=== PATIENT | male | born 1955 | race Caucasian/White ===

== ENCOUNTER → 2021-08-31 15:08 | Outpatient (BNVA) | payer MEDICARE, SELFPAY | PROVIDERS: PCP Nurse Practitioner Family; Visit Provider Nurse Practitioner Family | DX: Z20.822 Contact with and (suspected) exposure to COVID-19 (principal); I10 Essential (primary) hypertension; J44.9 Chronic obstructive pulmonary disease, unspecified | CPT/HCPCS: 87635 ==

== ENCOUNTER → 2021-09-13 10:40 | Outpatient (BNVA) | payer MEDICARE, SELFPAY | PROVIDERS: PCP Family Medicine Adult Medicine; Visit Provider Family Medicine Adult Medicine | DX: I10 Essential (primary) hypertension (principal); H53.129 Transient visual loss, unspecified eye; H53.9 Unspecified visual disturbance; E11.9 Type 2 diabetes mellitus without complications | CPT/HCPCS: 80053; 80061; 83036; 84443; 85025 ==

== ENCOUNTER → 2021-12-27 08:51 | Outpatient (BNVA) | payer MEDICARE, SELFPAY | PROVIDERS: PCP Family Medicine Adult Medicine; Referring Provider Family Medicine Adult Medicine; Visit Provider Urology | DX: R36.1 Hematospermia (principal); Z12.5 Encounter for screening for malignant neoplasm of prostate | CPT/HCPCS: 81003; G0103 ==

== ENCOUNTER → 2022-02-14 10:03 | Outpatient (BNVA) | payer MEDICARE, SELFPAY | PROVIDERS: PCP Family Medicine Adult Medicine; Visit Provider Family Medicine Adult Medicine | DX: E11.9 Type 2 diabetes mellitus without complications (principal); I10 Essential (primary) hypertension; E78.5 Hyperlipidemia, unspecified; M15.9 Polyosteoarthritis, unspecified; J44.9 Chronic obstructive pulmonary disease, unspecified | CPT/HCPCS: 80053; 80061; 83036 ==

== ENCOUNTER → 2022-03-03 08:53 | Outpatient (BNVA) | payer MEDICARE, SELFPAY | PROVIDERS: PCP Family Medicine Adult Medicine; Visit Provider Urology | DX: R39.89 Other symptoms and signs involving the genitourinary system (principal); R36.1 Hematospermia; N48.6 Induration penis plastica; N53.9 Unspecified male sexual dysfunction | CPT/HCPCS: 81003; 99214 ==

== ENCOUNTER → 2022-05-16 11:45 | Outpatient (BNVA) | payer MEDICARE, SELFPAY | PROVIDERS: PCP Family Medicine Adult Medicine; Visit Provider Family Medicine Adult Medicine | DX: I10 Essential (primary) hypertension (principal); E11.9 Type 2 diabetes mellitus without complications | CPT/HCPCS: 80053; 83036; 85025 ==

== ENCOUNTER → 2022-07-27 08:59 | Outpatient (BNVA) | payer MEDICARE, SELFPAY | PROVIDERS: PCP Family Medicine Adult Medicine; Visit Provider Podiatrist Foot & Ankle Surgery | DX: E11.8 Type 2 diabetes mellitus with unspecified complications (principal); I73.9 Peripheral vascular disease, unspecified; L60.3 Nail dystrophy; M21.6X1 Other acquired deformities of right foot; M21.6X2 Other acquired deformities of left foot; Z79.84 Long term (current) use of oral hypoglycemic drugs | CPT/HCPCS: 11721 ==

== ENCOUNTER → 2022-09-11 14:07 | Outpatient (BNVA) | payer MEDICARE, SELFPAY | PROVIDERS: PCP Family Medicine Adult Medicine; Visit Provider Urology | DX: Z12.5 Encounter for screening for malignant neoplasm of prostate (principal); N53.9 Unspecified male sexual dysfunction; N48.6 Induration penis plastica; R36.1 Hematospermia | CPT/HCPCS: 81003; 99213 ==

== ENCOUNTER → 2022-09-28 08:55 | Outpatient (BNVA) | payer MEDICARE, SELFPAY | PROVIDERS: PCP Family Medicine Adult Medicine; Visit Provider Podiatrist Foot & Ankle Surgery | DX: E11.8 Type 2 diabetes mellitus with unspecified complications (principal); I73.9 Peripheral vascular disease, unspecified; L60.3 Nail dystrophy; M21.6X9 Other acquired deformities of unspecified foot; Z79.84 Long term (current) use of oral hypoglycemic drugs | CPT/HCPCS: 11721 ==

== ENCOUNTER → 2022-11-03 13:52 | Outpatient (BNVA) | payer MEDICARE, SELFPAY | PROVIDERS: PCP Family Medicine Adult Medicine; Visit Provider Family Medicine Adult Medicine | DX: E11.9 Type 2 diabetes mellitus without complications (principal); E78.5 Hyperlipidemia, unspecified; I10 Essential (primary) hypertension; R60.0 Localized edema; J44.9 Chronic obstructive pulmonary disease, unspecified; R05.9 Cough, unspecified | CPT/HCPCS: 80053 ==

== ENCOUNTER → 2022-12-14 10:33 | Outpatient (BNVA) | payer MEDICARE, SELFPAY | PROVIDERS: PCP Family Medicine Adult Medicine; Visit Provider Podiatrist Foot & Ankle Surgery | DX: I73.9 Peripheral vascular disease, unspecified (principal); E11.8 Type 2 diabetes mellitus with unspecified complications; L60.3 Nail dystrophy; M21.6X2 Other acquired deformities of left foot; M21.6X1 Other acquired deformities of right foot; Z79.84 Long term (current) use of oral hypoglycemic drugs | CPT/HCPCS: 11721 ==

== ENCOUNTER 2023-01-05 15:11 | Outpatient (CLI) | payer MEDICARE, SELFPAY ==
--- NOTE | 2023-01-05 15:42 | XRR_ITS ---
PROCEDURE INFORMATION: Exam: XR Chest Exam date and time: 01/05/2023 3:44 PM Age: 67 years old Clinical indication: Cough; Additional info: Chronic cough/congestion, chronic congestion since May 2022 and antibiotics and copd medicines TECHNIQUE: Imaging protocol: Radiologic exam of the chest. Views: 2 views. COMPARISON: No relevant prior studies available. FINDINGS: Lungs: Hyperinflated lungs. No consolidation. Pleural spaces: No pleural effusion. No pneumothorax. Heart/Mediastinum: No cardiomegaly. Bones/joints: Visualized osseous structures are intact. XR/XR chest 2V* [id number] IMPRESSION: No acute findings.
== END 2023-01-05 15:12 | disposition home or self-care (01) ==
PROVIDERS: PCP Family Medicine; Visit Provider Family Medicine Adult Medicine
DX: J44.9 Chronic obstructive pulmonary disease, unspecified (principal); R05.9 Cough, unspecified; R60.0 Localized edema
CPT/HCPCS: 71046

== ENCOUNTER → 2023-03-13 14:52 | Outpatient (BNVA) | payer MEDICARE, SELFPAY | PROVIDERS: PCP Family Medicine Adult Medicine; Visit Provider Podiatrist Foot & Ankle Surgery | DX: E11.8 Type 2 diabetes mellitus with unspecified complications (principal); I73.9 Peripheral vascular disease, unspecified; L60.3 Nail dystrophy; M21.6X2 Other acquired deformities of left foot; M21.6X1 Other acquired deformities of right foot; Z79.84 Long term (current) use of oral hypoglycemic drugs | CPT/HCPCS: 99214 ==

== ENCOUNTER → 2023-04-13 09:56 | Outpatient (BNVA) | payer MEDICARE, SELFPAY | PROVIDERS: PCP Family Medicine Adult Medicine; Visit Provider Family Medicine Adult Medicine | DX: I10 Essential (primary) hypertension (principal); E11.9 Type 2 diabetes mellitus without complications; E78.5 Hyperlipidemia, unspecified; I73.9 Peripheral vascular disease, unspecified; R05.9 Cough, unspecified; M15.9 Polyosteoarthritis, unspecified; J44.9 Chronic obstructive pulmonary disease, unspecified; N53.9 Unspecified male sexual dysfunction | CPT/HCPCS: 80053; 80061; 83036; 84443; 85025 ==

== ENCOUNTER → 2023-06-04 14:50 | Outpatient (BNVA) | payer MEDICARE, SELFPAY | PROVIDERS: PCP Family Medicine Adult Medicine; Visit Provider Podiatrist Foot & Ankle Surgery | DX: E11.9 Type 2 diabetes mellitus without complications (principal); I73.9 Peripheral vascular disease, unspecified; L60.3 Nail dystrophy; M21.6X2 Other acquired deformities of left foot; M21.6X1 Other acquired deformities of right foot; Z79.84 Long term (current) use of oral hypoglycemic drugs | CPT/HCPCS: 11721 ==

== ENCOUNTER → 2023-08-29 10:50 | Outpatient (BNVA) | payer MEDICARE, MEDICAID, SELFPAY | PROVIDERS: PCP Family Medicine Adult Medicine; Visit Provider Podiatrist Foot & Ankle Surgery | DX: E11.8 Type 2 diabetes mellitus with unspecified complications (principal); I73.9 Peripheral vascular disease, unspecified; L60.3 Nail dystrophy; M21.6X2 Other acquired deformities of left foot; M21.6X1 Other acquired deformities of right foot; Z79.84 Long term (current) use of oral hypoglycemic drugs | CPT/HCPCS: 11721 ==

== ENCOUNTER → 2023-10-31 12:46 | Outpatient (BNVA) | payer MEDICARE, MEDICAID, SELFPAY | PROVIDERS: PCP Family Medicine Adult Medicine; Visit Provider Nurse Practitioner Family | DX: M25.422 Effusion, left elbow (principal) | CPT/HCPCS: 73080 ==

== ENCOUNTER → 2023-12-05 12:42 | Outpatient (BNVA) | payer MEDICARE, SELFPAY | PROVIDERS: PCP Family Medicine Adult Medicine; Visit Provider Podiatrist Foot & Ankle Surgery | DX: E11.9 Type 2 diabetes mellitus without complications (principal); I73.9 Peripheral vascular disease, unspecified; L60.3 Nail dystrophy; M21.6X9 Other acquired deformities of unspecified foot; M21.6X2 Other acquired deformities of left foot; M21.6X1 Other acquired deformities of right foot; Z79.84 Long term (current) use of oral hypoglycemic drugs | CPT/HCPCS: 11721 ==

== ENCOUNTER → 2024-01-15 13:47 | Outpatient (BNVA) | payer MEDICARE, SELFPAY | PROVIDERS: PCP Family Medicine Adult Medicine; Visit Provider Family Medicine Adult Medicine | DX: E11.9 Type 2 diabetes mellitus without complications (principal); I10 Essential (primary) hypertension; E78.2 Mixed hyperlipidemia; N53.9 Unspecified male sexual dysfunction; J43.1 Panlobular emphysema | CPT/HCPCS: 80053; 83036; 85025 ==

== ENCOUNTER → 2024-03-05 14:29 | Outpatient (BNVA) | payer MEDICARE, SELFPAY | PROVIDERS: PCP Family Medicine Adult Medicine; Visit Provider Podiatrist Foot & Ankle Surgery | DX: E11.9 Type 2 diabetes mellitus without complications (principal); I73.9 Peripheral vascular disease, unspecified; L60.3 Nail dystrophy; Z79.84 Long term (current) use of oral hypoglycemic drugs | CPT/HCPCS: 11721 ==

== ENCOUNTER → 2024-05-14 15:20 | Outpatient (BNVA) | payer MEDICARE, SELFPAY | PROVIDERS: PCP Family Medicine Adult Medicine; Visit Provider Podiatrist Foot & Ankle Surgery | DX: I73.9 Peripheral vascular disease, unspecified; L60.3 Nail dystrophy; E11.69 Type 2 diabetes mellitus with other specified complication; Z79.84 Long term (current) use of oral hypoglycemic drugs | CPT/HCPCS: 11721 ==

== ENCOUNTER → 2024-07-23 10:29 | Outpatient (BNVA) | payer MEDICARE, SELFPAY | PROVIDERS: PCP Family Medicine Adult Medicine; Visit Provider Podiatrist Foot & Ankle Surgery | DX: E11.8 Type 2 diabetes mellitus with unspecified complications (principal); I73.9 Peripheral vascular disease, unspecified; L60.3 Nail dystrophy; Z79.84 Long term (current) use of oral hypoglycemic drugs | CPT/HCPCS: 11721 ==

== ENCOUNTER → 2024-07-24 15:33 | Outpatient (BNVA) | payer MEDICARE, SELFPAY | PROVIDERS: PCP Family Medicine Adult Medicine | DX: I10 Essential (primary) hypertension (principal); E11.9 Type 2 diabetes mellitus without complications | CPT/HCPCS: 80053; 83036; 85025 ==

== ENCOUNTER → 2024-10-06 08:54 | Outpatient (BNVA) | payer MEDICARE, MEDICAID, SELFPAY | PROVIDERS: PCP Family Medicine Adult Medicine; Visit Provider Podiatrist Foot & Ankle Surgery | DX: E11.8 Type 2 diabetes mellitus with unspecified complications (principal); I73.9 Peripheral vascular disease, unspecified; L60.3 Nail dystrophy; Z79.84 Long term (current) use of oral hypoglycemic drugs | CPT/HCPCS: 11721 ==

== ENCOUNTER 2024-10-14 09:00 | Outpatient (CLI) | payer MEDICARE, MEDICAID, SELFPAY ==
--- NOTE | 2024-10-14 09:00 | CT_ITS ---
WS: [id number] LDCT LUNG CANCER SCREENING HISTORY: smoker; 53pk yr; screening lung ca TECHNIQUE: Axial imaging performed from the apices to 1 cm below the costophrenic angles. Coronal and sagittal reformats are submitted with axial MIP series. All CT scans at [facility] use at least one of these dose optimization techniques: automated exposure control; mA and/or kV adjustment per patient size (includes targeted exams where dose is matched to clinical indication); or iterativ e reconstruction. DLP: 65.49 mGy.cm DIvol: Mean CTDIvol: 1.10 (mGy) COMPARISON: None available. Diagnostic quality: Satisfactory Lungs: Moderate centrilobular emphysema. There are a few micronodules scattered throughout the periph chris of both lungs. Focal scar in the lingula. No endobronchial lesions. Heart: Normal size heart with no pericardial effusion.. Other findings: Calcified hilar lymph nodes. Mild atherosclerosis aorta. Normal size aorta and pulmon malcolm artery. Small hiatal hernia. No adrenal mass. Splenic granulomata. CT/CT lung screening [id number] IMPRESSION: LUNG-RADS: 2-Benign Appearance or Behavior FOLLOW UP: 12 Month: Continue annual screening with LDCT OTHER FINDINGS (S MODIFIER): None.
== END 2024-10-14 09:01 | disposition home or self-care (01) ==
PROVIDERS: PCP Family Medicine; Visit Provider Family Medicine
DX: Z12.2 Encounter for screening for malignant neoplasm of respiratory organs (principal); F17.210 Nicotine dependence, cigarettes, uncomplicated; J43.2 Centrilobular emphysema; R91.8 Other nonspecific abnormal finding of lung field; I89.8 Other specified noninfective disorders of lymphatic vessels and lymph nodes; I70.0 Atherosclerosis of aorta; K44.9 Diaphragmatic hernia without obstruction or gangrene; D73.89 Other diseases of spleen
CPT/HCPCS: 71271

== ENCOUNTER → 2025-01-12 10:15 | Outpatient (BNVA) | payer MEDICARE, MEDICAID, SELFPAY | PROVIDERS: PCP Family Medicine; Visit Provider Podiatrist Foot & Ankle Surgery | DX: E11.69 Type 2 diabetes mellitus with other specified complication (principal); L60.3 Nail dystrophy; I73.9 Peripheral vascular disease, unspecified; M21.6X9 Other acquired deformities of unspecified foot; M20.41 Other hammer toe(s) (acquired), right foot; M20.42 Other hammer toe(s) (acquired), left foot; M21.6X1 Other acquired deformities of right foot; M21.6X2 Other acquired deformities of left foot; Z79.84 Long term (current) use of oral hypoglycemic drugs | CPT/HCPCS: 11721; 99213 ==

== ENCOUNTER → 2025-02-23 08:26 | Outpatient (BNVA) | payer MEDICARE, MEDICAID, SELFPAY | PROVIDERS: PCP Family Medicine; Visit Provider Family Medicine | DX: I10 Essential (primary) hypertension (principal); E78.2 Mixed hyperlipidemia; R73.03 Prediabetes; Z12.5 Encounter for screening for malignant neoplasm of prostate | CPT/HCPCS: 80053; 80061; 83036; 84443; 85025; G0103 ==

== ENCOUNTER 2025-03-09 11:22 | Emergency (ER) | payer MEDICARE, MEDICAID, SELFPAY ==
[2025-03-09 11:27] VITALS: BP 114/68; PULSE 74; RESP 16; TEMP 36.9; O2SAT 96
--- NOTE | 2025-03-09 11:34 | ECG_ITS ---
[facility] Test Date: 2025-03-09 Pat Name: Charlie Marcus Department: Room: Gender: Male [employer] Operator: : 1955 Requested By: Keshav Keller Order Number: [id number] Magdaleno MD: Samantha Swanson M.D. Measurements Intervals [place] Rate: 71 P: 91 NH: 147 QRS: 89 QRSD: 116 T: 85 QT: 393 QTc: 429 Interpretive Statements SINUS RHYTHM POSSIBLE RIGHT VENTRICULAR CONDUCTION DELAY [RSR (QR) IN V1/V2] No previous ECG available for comparison Electronically Signed On 03-09-2025 21:56:33 CDT by Samantha Swanson M.D. [email or web address] [id number]
--- NOTE | 2025-03-09 11:50 | XRR_ITS ---
PROCEDURE INFORMATION: Exam: XR Chest Exam date and time: 03/09/2025 11:56 AM Age: 69 years old Clinical indication: Other: Weakness TECHNIQUE: Imaging protocol: Radiologic exam of the chest. Views: 1 view. COMPARISON: CT lung screening [id number] 10/14/2024 9:01 AM FINDINGS: Lungs: Unremarkable. No consolidation. Pleural spaces: Unremarkable. No pleural effusion. No pneumothorax. Heart/Mediastinum: Unremarkable. No cardiomegaly. Bones/joints: Unremarkable. XR/XR chest 1V portable [id number] IMPRESSION: No acute findings.
[2025-03-09 12:36] LABS: Basophils # 0.1 10^3/uL (0.0-0.1); Basophils % 0.4 %; Eosinophils # 0.2 10^3/uL (0.0-0.8); Eosinophils % 1.9 %; Hematocrit 39.9 % (37-53); Lymphocytes % 9.1 %; Mean Corpuscular HGB Conc 33.1 g/dL (30-55); Mean Corpuscular Hemoglobin 29.9 pg (27-33); Mean Corpuscular Volume 90.3 fl (82-101); Monocytes # 0.9 10^3/uL (0.2-0.9); Neutrophils # 9.19 10^3/uL (1.8-7.7); Neutrophils % 80.3 %; Nucleated Red Blood Cells % 0 %; Platelet Count 307 10^3/cmm (157-399); Red Blood Count 4.42 10^6/uL (3.85-5.65); Red Cell Distribution Width 13.3 % (12.1-15.1); White Blood Count 11.44 10^3/uL (3.29-11.43)
[2025-03-09 12:53] LABS: Alanine Aminotransferase 11 U/L (0-41); Albumin Level 3.9 g/dL (3.5-5.2); Alkaline Phosphatase 95 U/L (40-130); Anion Gap 14.2 (5-19); Aspartate Amino Transferase 15 U/L (0-40); Blood Urea Nitrogen 23 mg/dL (8-23); Calcium 9.1 mg/dL (8.5-10.5); Carbon Dioxide 26 mmol/L (22-29); Chloride 101 mmol/L (98-107); Creatinine Clr Calc Pharmacy 83.7406; Glomerular Filtration Rate 74.1 mL/min (90-130); Glucose 112 mg/dL (65-115); Osmolality Calculated 288 mOsm/kg (285-295); Potassium 4.2 mmol/L (3.5-5.1); Sodium 137 mmol/L (136-145); Total Bilirubin 0.3 mg/dL (0.15-1.2); Total Protein 6.9 g/dL (6.6-8.7)
--- NOTE | 2025-03-09 15:16 | CTR_ITS ---
PROCEDURE INFORMATION: Exam: CT Head Without Contrast Exam date and time: 03/09/2025 3:53 PM Age: 69 years old Clinical indication: Pain; Headache; Migraine; Additional info: [place] TECHNIQUE: Imaging protocol: Computed tomography of the head without contrast. Radiation optimization: All CT scans at this facility use at least one of these dose optimization techniques: automated exposure control; mA and/or kV adjustment per patient size (includes targeted exams where dose is matched to clinical indication); or iterative reconstruction. COMPARISON: CT head wo con* [id number] 09/22/2019 11:47 AM RADIATION DOSE METRICS: Total DLP (mGy-cm): 1076.68 FINDINGS: Brain: Normal. No hemorrhage. Unremarkable white matter. No mass effect. Cerebral ventricles: No ventriculomegaly. Paranasal sinuses: Visualized sinuses are unremarkable. No fluid levels. Mastoid air cells: Visualized mastoid air cells are well aerated. Bones: Unremarkable. No acute fracture. Soft tissues: Unremarkable. CT/CT head wo con* [id number] IMPRESSION: No acute intracranial abnormality.
[2025-03-09 15:19] VITALS: TEMP 36.4
--- NOTE | 2025-03-09 15:19 | ED_ITS ---
HPI - General Adult 2 General: Chief complaint: General Medical Stated complaint: stroke like symptoms Time Seen by Provider: 03/09/25 15:14 Source: patient Mode of arrival: ambulatory Limitations: no limitations History of Present Illness: 69-year-old male states that over the week he has been having numbness. He states he has had numbness to both sides of his body today states he had some numbness to the right side of his arm and face states yesterday was on his left side he had no weakness no slurred speech he does have a headache. Denies any worse improving factors. Associated symptoms: Reports headache(s); Deny chest pain, dyspnea, nausea, rash or vomiting Related Data Home Medications ?Medication ?Instructions ?Recorded ?Confirmed aspirin 81 mg tablet,delayed 81 mg PO .every other day 09/13/21 02/23/25 release (Adult Low Dose Aspirin) Previous Rx's ?Medication ?Instructions ?Recorded ipratropium 20 mcg-albuterol 100 1 puff inhalation QID COPD #4 grams 08/12/22 mcg/actuation mist for inhalation (Combivent Respimat) montelukast 10 mg tablet 10 mg PO DAILY #90 tabs 09/24 01/16 diabetic shoes with 3 inserts #1 ea 01/12/25 ramipril 5 mg capsule 10 mg (2 x 5 mg) PO DAILY bl ood 01/19/25 pressure #180 caps meloxicam 15 mg tablet See Rx Instructions .Route 0 01/23/25 .COMPLEX #90 tabs atorvastatin 10 mg tablet (Lipitor) 10 mg PO DAILY #90 tabs 02/23/25 budesonide-formoterol HFA 160 2 puff inhalation BID #1 0.2 grams 02/23/25 mcg-4.5 mcg/actuation aerosol inhaler doxycycline hyclate 100 mg capsule 100 mg PO BID 10 da ys #20 caps 02/23/25 Allergies Allergy/AdvReac Type Severity Reaction Status Date / Time No Known Allergies Allergy Verified 02/23/25 07:08 Review of Systems 2 Const: Denies: fever(s), chills, body aches or change in appetite Eyes: Denies: blurry vision or eye discomfort ENMT: Denies: throat pain or dental pain Card: Denies: chest pain Resp: Denies: dyspnea GI: Denies: abdominal pain, nausea, vomiting or diarrhea Musc: Denies: neck pain or back pain Skin/Breast: Denies: rash Neuro: Reports: headache(s) and sensory changes PFSH ED 2 PFSH: Medical History Carpal tunnel syndrome of right wrist Prediabetes Enrolled in chronic care management Constipation Migraine, ophthalmoplegic Nicotine dependence, cigarettes, uncomplicated Screening for lung cancer LDCT 10.14.24, due 1 yr CKD (chronic kidney disease) stage 2, GFR 60-89 ml/min 04/11/2024 creatinine 1.2 GFR 63 Peripheral arterial disease Bilateral lower extremity edema Peyronie's disease Abnormal prostate exam Male sexual dysfunction Hyperlipidemia Chronic obstructive pulmonary disease Osteoarthritis involving multiple joints on both sides of body Hypertension Surgical History H/O hernia repair Left inguinal History of tonsillectomy Family History Father , AT 67 Heart attack Mother , AT AGE 81 Aneurysm Social History Smoking and tobacco/nicotine status: current every day tobacco/nicotine user cigarettes Packs smoked per day: 1 Years cigarettes smoked: 53 Alcohol intake: never Substance/Drug Use: never Caregiver/support person: No Lives independently: Yes Household members: spouse and other Details: son and grandson Marital status: Number of children: 2 Highest education level completed: Some College, No Degree Current occupational status: retired Previous occupational history: saw mill Do you think of yourself as: Straight/Heterosexual Current gender identity: Male Physical Exam 2 Const: COMMON NORMALS: no acute distress, patient oriented x3 and healthy appearing HENMT: COMMON NORMALS: normocephalic and atraumatic HEAD & SCALP: n ormocephalic and atraumatic Eye: COMMON NORMALS: Equal, round and reactive pupils present and EOMs intact bilaterally VISUAL ISAAC: No peripheral vision loss, No central vision loss, No left visual field cut, No right visual field cut, No bitemporal visual field cut, No binasal visual field cut and No visual field cut by quadrant PUPIL: Y es Equal, round and reactive pupils present Neck/C-Spine: COMMON NORMALS: full ROM and supple Chest: COMMONS NORMALS: normal inspection of the chest Resp: COMMON NORMALS: normal respiratory effort, No retractions, No use of accessory muscles and clear to auscultation bilaterally AUSCULTATION: clear to auscultation bilaterally Cardio: COMMON NORMALS: regular rate, regular rhythm and No murmurs present (Cardio) RATE: regular rate RHYTHM: regular rhythm Extremity: COMMON NORMALS: normal to inspection and full ROM Neuro: COMMON NORMALS: patient oriented x3, moves all extremities and no focal motor deficits CRANIAL NERVES: Yes CN normal except as noted SPEECH: s peech normal GAIT: Yes Normal gait present MOTOR EXAM: 5/5 motor strength present throughout Psych: COMMON NORMALS: mental status grossly normal, Normal thought process present and cooperative THOUGHT PROCESS: Normal thought process present Skin: COMMON NORMALS: no rashes or lesions noted and no wounds GENERAL SKIN EXAM: no rashes or lesions noted Course 2 Vital Signs: Vital signs: Vital Signs Temperature 97.5 F L 03/09/25 15:19 Pulse Rate 64 03/09/25 17:00 Respiratory Rate 16 03/09/25 17:00 Blood Pressure 172/90 03/09/25 17:00 Pulse Oximetry 98 03/09/25 17:00 Oxygen Delivery Me thod Room Air 03/09/25 17:00 MDM - General Adult Medical Decision Making Patient presents here with paresthesias-bilateral he denies here 0 is asymptomatic currently did offer admission but he states he feels improved he is on aspirin he is to take daily he has follow-up with PCP he has no signs of acute stroke here he is return if worsening. Medical Records I reviewed the patient's medical records. Lab Data I reviewed the patient's lab results. 03/09/25 12:20 03/09/25 12:09 Radiology Impressions Chest X-Ray 03/09/25 11:50 IMPRESSION: No acute findings. Head CT 03/09/25 15:16 IMPRESSION: No acute intracranial abnormality. Laboratory Results WBC 11.44 10^3/uL (3.29-11.43) H 03/09/25 12:20 RBC 4.42 10^6/uL (3.85-5.65) 03/09/25 12:20 Hgb 13.20 g/dL (11.27-16.99) 03/09/25 12:20 Hct 39.9 % (37-53) 03/09/25 12:20 MCV 90.3 fl (82-101) 03/09/25 12:20 MCH 29.9 pg (27-33) 03/09/25 12:20 MCHC 33.1 g/dL (30-55) 03/09/25 12:20 RDW 13.3 % (12.1-15.1) 03/09/25 12:20 Plt Count 307 10^3/cmm (157-399) 03/09/25 12:20 MPV 9.0 fL (7.4-10.4) 03/09/25 12:20 Neut % (Auto) 80.3 % 03/09/25 12:20 Lymph % (Auto) 9.1 % 03/09/25 12:20 [place] % (Auto) 8.0 % 03/09/25 12:20 Eos % (Auto) 1.9 % 03/09/25 12:20 Baso % (Auto) 0.4 % 03/09/25 12:20 Neut # (Auto) 9.19 10^3/uL (1.8-7.7) H 03/09/25 12:20 Lymph # (Auto) 1.0 10^3/uL (0.8-4.8) 03/09/25 12:20 [place] # (Auto) 0.9 10^3/uL (0.2-0.9) 03/09/25 12:20 Eos # (Auto) 0.2 10^3/uL (0.0-0.8) 03/09/25 12:20 Baso # (Auto) 0.1 10^3/uL (0.0-0.1) 03/09/25 12:20 Nucleated RBC % (auto) 0 % 03/09/25 12:20 Nucleated RBCs # 0.0 /100WBC 03/09/25 12:20 Sodium 137 mmol/L (136-145) 03/09/25 12:09 Potassium 4.2 mmol/L (3.5-5.1) 03/09/25 12:09 Chloride 101 mmol/L (98-107) 03/09/25 12:09 Carbon Dioxide 26 mmol/L (22-29) 03/09/25 12:09 Anion Gap 14.2 (5-19) 03/09/25 12:09 BUN 23 mg/dL (8-23) 03/09/25 12:09 Creatinine 1.0 mg/dL (0.7-1.2) 03/09/25 12:09 GFR Calculation 74.1 mL/min (90-130) L 03/09/25 12:09 Glucose 112 mg/dL (65-115) 03/09/25 12:09 Calculated Osmolality 288 mOsm/kg (285-295) 03/09/25 12:09 Calcium 9.1 mg/dL (8.5-10.5) 03/09/25 12:09 Total Bilirubin 0.3 mg/dL (0.15-1.2) 03/09/25 12:09 AST 15 U/L (0-40) 03/09/25 12:09 ALT 11 U/L (0-41) 03/09/25 12:09 Alkaline Phosphatase 95 U/L (40-130) 03/09/25 12:09 Total Protein 6.9 g/dL (6.6-8.7) 03/09/25 12:09 Albumin 3.9 g/dL (3.5-5.2) 03/09/25 12:09 Globulin 3.0 g/dL (1.3-4.6) 03/09/25 12:09 All radiology interpretation(s) finalized by discharge Discharge Plan Discharge Patient Disposition: Home Clinical Impression: Paresthesia Condition: Stable Prescriptions: No Action aspirin [Adult Low Dose Aspirin] 81 mg tablet,delayed release (DR/EC) 81 mg PO .every other day montelukast 10 mg tablet 10 mg PO DAILY Qty: 90 3RF (DME) diabetic shoes with 3 inserts See Rx Instructions .Route .MEDSUPPLY Qty: 1 0RF Rx Instructions: As directed to [employer] [facility] [facility] Combivent Respimat 20-100 mcg/actuation mist 1 puff inhalation QID Qty: 4 3RF Rx Instructions: space evenly during waking hours budesonide-formoterol 160-4.5 mcg/actuation HFA aerosol inhaler 2 puff inhalation BID Qty: 10.2 5RF doxycycline hyclate 100 mg capsule 100 mg PO BID 10 Days Qty: 20 0RF atorvastatin [Lipitor] 10 mg tablet 10 mg PO DAILY Qty: 90 3RF ramipril 5 mg capsule 10 mg PO DAILY Qty: 180 1RF meloxicam 15 mg tablet See Rx Instructions .ROUTE .COMPLEX Qty: 90 1RF Dose Instruction: TAKE 1 TABLET BY MOUTH ONCE DAILY FOR ARTHRITIS PAIN Rx Instructions: TAKE 1 TABLET BY MOUTH ONCE DAILY FOR ARTHRITIS PAIN Discharge Orders: Discharge ED (Routine); Ordered 03/09/25 Ordered By: Marylou Byrd Referrals: Kathy Sommers MD [Primary Care Provider, [facility]] - 4-7 days Discharge Diet: Advance as tolerated Discharge Activity: Resume usual activity Patient Instructions: Paresthesia (ED) Print Language: Malay Coding Level of Care Code ED Corporate Logistics Manager for Thalia Rodriguez NIH stroke score NIHSS Level Of Consciousness - 1a: 0 Level Of Consciousness Questions - 1b: Both Correct Level Of Consciousness Commands - 1c: Both Correct Best Gaze - 2: Normal Visual Isaac - 3: No Visual Loss Facial Palsy - 4: Normal Motor Arm Right - 5: No Drift Motor Arm Left - 5: No Drift Motor Leg Right - 6: No Drift Motor Leg Left - 6: No Drift Limb Ataxia - 7: Absent Sensory - 8: Normal Best Language - 9: No Aphasia Dysarthia - 10: Normal Extinction And Inattention - 11: 0 Score Total Score: 0
[2025-03-09 15:48] VITALS: BP 168/95; PULSE 58; RESP 16; O2SAT 97
[2025-03-09] MEDS: hyDRALAzine 20 mg/mL INJ 1 mL 10 MG IVP (16:16)
[2025-03-09] MEDS: ketorolac 30 mg/mL INJ 15 MG IVP (16:17)
[2025-03-09 17:00] VITALS: BP 172/90; PULSE 64; RESP 16; O2SAT 98
[2025-03-09] MEDS: morphine 4 mg/mL SDV 1 mL IVP (17:29)
[2025-03-09] MEDS: ondansetron 2 mg/ML SDV 2 mL 4 MG IVP (17:30)
[2025-03-09 18:19] VITALS: BP 175/89; PULSE 70; RESP 16; O2SAT 91
== END 2025-03-09 18:05 | disposition home or self-care (01) ==
PROVIDERS: Emergency Provider Emergency Medicine; PCP Family Medicine
DX: R20.2 Paresthesia of skin (principal); Z79.82 Long term (current) use of aspirin; F17.210 Nicotine dependence, cigarettes, uncomplicated; E78.5 Hyperlipidemia, unspecified; I12.9 Hypertensive chronic kidney disease with stage 1 through stage 4 chronic kidney disease, or unspecified chronic kidney disease; N18.2 Chronic kidney disease, stage 2 (mild)
CPT/HCPCS: 36415; 70450; 71045; 80053; 85025; 93005; 99285; J0360; J1885; J2270; J2405

== ENCOUNTER 2025-04-08 07:30 | Outpatient (CLI) | payer MEDICARE, MEDICAID, SELFPAY ==
--- NOTE | 2025-04-08 07:45 | USCV_ITS ---
Charlie Marcus Age: 69 Gender: M : 1955 Exam Date: 04/08/2025 07:36 Ordering Phys: Kathy Sommers MD Technologist: [employer] [place] [facility] [place]: [place] HISTORY: tds due to gas. limited visualization Diameter (cm) AP x Transverse x Length Velocity (cm/s) Waveform Prox Aorta: 2.30 x 2.10 x 57.70 Mid Aorta: 2.30 x 2.00 x 50.10 Distal Aorta: 2.40 x 2.10 x 60.60 Right Iliac Prox: 1.03 x 1.10 x 128.60 Left Iliac Prox: 0.68 x 1.15 x 99.20 Stent Prox Landing x x Aneurysmal Sac Max x x Lt Lat Sac Dim Rt Lat Sac Dim Stent Dist Landing x x Right Iliac Stent x x Left Iliac Stent x x Right Renal Art Left Renal Art FINDINGS: CONCLUSIONS Limited study due to bowel gas No evidence of abdominal aortic or bilateral iliac aneurysm. Moderate atheromatous disease Kobi Swann MD (Electronically Signed) Final Date: 08 April 2025 09:14 S
== END 2025-04-08 07:31 | disposition home or self-care (01) ==
LOC: RAD 07:31
PROVIDERS: PCP Family Medicine; Visit Provider Family Medicine
DX: Z13.6 Encounter for screening for cardiovascular disorders (principal); F17.210 Nicotine dependence, cigarettes, uncomplicated; I70.90 Unspecified atherosclerosis
CPT/HCPCS: 76706

== ENCOUNTER → 2025-04-13 10:17 | Outpatient (BNVA) | payer MEDICARE, MEDICAID, SELFPAY | PROVIDERS: PCP Family Medicine; Visit Provider Podiatrist Foot & Ankle Surgery | DX: E11.8 Type 2 diabetes mellitus with unspecified complications (principal); L60.3 Nail dystrophy; E11.9 Type 2 diabetes mellitus without complications; I73.9 Peripheral vascular disease, unspecified | CPT/HCPCS: 11721 ==

== ENCOUNTER 2025-06-22 11:00 | Outpatient (CLI) | payer MEDICARE, MEDICAID, SELFPAY ==
--- NOTE | 2025-06-22 11:15 | USCV_ITS ---
Charlie Marcus Age: 69 Gender: M : 1955 Exam Date: 06/22/2025 11:22 Ordering Phys: Kathy Sommers MD Technologist: SIMON Exam Location: [facility] [place] Indication: TIA, DIZZINNESS Risk Factors: Previous Vascular Surgery: Right Brachial BP: / Left Brachial BP: / Right Left Velocity (cm/s) Spectral Plaque Velocity (cm/s) Spectral Plaque Syst/Diast Broadening Syst/Diast Broadening 85.40/ 18.00 Prox CCA 109.10/ 22.00 84.10/ 14.10 Mid CCA 99.80 / 19.80 64.80/ 22.30 Distal CCA 59.10 / 14.60 47.80/ 12.90 Prox ICA 65.00 / 16.10 41.10/ 14.70 Mid ICA 47.20 / 14.80 40.30/ 16.40 Distal ICA 44.40 / 16.00 86.30 ECA 61.40 0.70 ICA/CCA 1.10 Antegrade Vertebral Antegrade 32.50/ 9.70 cm/s 42.30/ 5.60 cm/s Tri Subclavian Tri 96.60 136.3 0 FINDINGS Comparison: none available. No significant elevation of systolic or diastolic velocities. Diffuse bilateral scattered calcified plaque and intimal thickening throughout the common carotid arteries and extending through the bifurcation. Antegrade vertebral arteries. CONCLUSIONS Bilateral ICA stenosis less than 50%. Mild carotid atherosclerosis. Dr. Anastacia Alvarado DO (Electronically Signed) Final Date: 22 June 2025 12:52 S
== END 2025-06-22 11:01 | disposition home or self-care (01) ==
LOC: RAD 11:03
PROVIDERS: PCP Family Medicine; Visit Provider Family Medicine
DX: G45.9 Transient cerebral ischemic attack, unspecified (principal); I77.9 Disorder of arteries and arterioles, unspecified
CPT/HCPCS: 93880

== ENCOUNTER → 2025-07-21 10:57 | Outpatient (BNVA) | payer MEDICARE, MEDICAID, SELFPAY | PROVIDERS: PCP Family Medicine; Visit Provider Podiatrist Foot & Ankle Surgery | DX: E11.69 Type 2 diabetes mellitus with other specified complication (principal); L60.3 Nail dystrophy; E11.8 Type 2 diabetes mellitus with unspecified complications; I73.9 Peripheral vascular disease, unspecified | CPT/HCPCS: 11721 ==

== ENCOUNTER 2025-09-18 07:58 | Outpatient (CLI) | payer MEDICARE, MEDICAID, SELFPAY ==
--- NOTE | 2025-09-18 08:00 | CT_ITS ---
WS: [id number] LDCT LUNG CANCER SCREENING HISTORY: smoker, screening; 54pk yr TECHNIQUE: Axial imaging performed from the apices to 1 cm below the costophrenic angles. Coronal and sagittal reformats are submitted with axial MIP series. All CT scans at [facility] use at least one of these dose optimization techniques: automated exposure control; mA and/or kV adjustment per patient size (includes targeted exams where dose is matched to clinical indication); or iterative reconstruction. DLP: 67.09 mGy.cm DIvol: Mean CTDIvol: 1.00 (mGy) COMPARISON: 10/14/2024 Diagnostic quality: Satisfactory Lungs: Moderate pulmonary hyperinflation from centrilobular emphysema. There are a few very small scattered peripheral nodules which are less than 3 mm. No new mass or enlarging nodule. Heart: Normal size heart with no pericardial effusion.. Coronary artery calcifications. Other findings: Very minimal atherosclerosis aorta. Normal size aorta and pulmonary artery. No pathologically enlarged lymph nodes. Small hiatal hernia. Suprarenal aortic calcifications. No adrenal mass. Splenic granulomata. Increase in thoracic kyphosis. CT/CT lung screening [id number] IMPRESSION: LUNG-RADS: 2-Benign Appearance or Behavior FOLLOW UP: 12 Month: Continue annual screening with LDCT OTHER FINDINGS (S MODIFIER): None.
== END 2025-09-18 07:59 | disposition home or self-care (01) ==
LOC: RAD 08:01
PROVIDERS: PCP Family Medicine; Visit Provider Family Medicine
DX: Z12.2 Encounter for screening for malignant neoplasm of respiratory organs (principal); F17.210 Nicotine dependence, cigarettes, uncomplicated; I35.0 Nonrheumatic aortic (valve) stenosis; M40.204 Unspecified kyphosis, thoracic region; D73.89 Other diseases of spleen
CPT/HCPCS: 71271